=== PATIENT | female | born 1995 | race Hispanic/Latino ===

== ENCOUNTER 2018-01-24 12:35 | Inpatient (IN) | payer OTHER ==
[~2018-01-24] VITALS: Ht 154.9 cm; Wt 82.8 kg
[2018-01-24 15:03] LABS: BASOPHILS # (AUTO) 0.1 (0.0-0.1); BASOPHILS % 0.5 % (0.0-1.0); EOSINOPHILS # (AUTO) 0.2 (0.0-0.4); EOSINOPHILS % 1.3 % (0.0-6.0); LYMPHOCYTES # (AUTO) 4.1 (1.0-3.2); LYMPHOCYTES % 23.4 % (18.0-39.1); MEAN CORPUSCULAR HGB CONC 36.1 g/dL (31-35); MEAN CORPUSCULAR VOLUME 91.4 fL (81-99); MONOCYTES # (AUTO) 0.9 (0.2-0.8); MONOCYTES % 4.9 % (4.4-11.3); NEUTROPHILS # (AUTO) 10.9 (2.1-6.9); NEUTROPHILS % 61.9 % (38.7-80.0); PLATELET COUNT 357 x10e3/uL (140-360); RED BLOOD COUNT 2.09 x10e6/uL (3.6-5.1); RED CELL DISTRIBUTION WIDTH 21.4 % (11.7-14.4)
[2018-01-24 15:09] LABS: HEMATOCRIT 19.1 % (34.2-44.1); HEMOGLOBIN 6.9 g/dL (12.0-16.0)
[2018-01-24 15:10] LABS: ALANINE AMINOTRANSFERASE 21 IU/L (0-55); ALBUMIN 4.6 g/dL (3.5-5.0); ALBUMIN/GLOBULIN RATIO 1.5 (0.8-2.0); ALKALINE PHOSPHATASE 82 IU/L (40-150); ANION GAP 12.6 mmol/L (8-16); BLOOD UREA NITROGEN 12 mg/dL (7-26); BUN/CREATININE RATIO 16 (6-25); CALCIUM 9.9 mg/dL (8.4-10.2); CARBON DIOXIDE 22 mmol/L (22-29); CHLORIDE 105 mmol/L (98-107); CREATININE, SERUM 0.74 mg/dL (0.57-1.11); EST GLOMERULAR FILTRATION RATE > 60 ML/MIN (60-); GLUCOSE 109 mg/dL (74-118); POTASSIUM 3.6 mmol/L (3.5-5.1); SODIUM 136 mmol/L (136-145)
[2018-01-24 15:21] LABS: PREGNANCY TEST, URINE NEGATIVE (NEGATIVE)
[2018-01-24 15:28] LABS: CLARITY,URINE SL CLOUDY (CLEAR); COLOR,URINE YELLOW (YELLOW)
[2018-01-24 15:29] LABS: BILIRUBIN,URINE 1+ (NEGATIVE); KETONES,URINE TRACE (NEGATIVE); LEUKOCYTE ESTERASE ,URINE TRACE (NEGATIVE); NITRITE,URINE NEGATIVE (NEGATIVE); PROTEIN,URINE DIPSTICK TRACE (NEGATIVE); URINE UROBILINOGEN 0.2 mg/dL (0.2 - 1)
[2018-01-24 15:32] LABS: AMORPHOUS SEDIMENT,URINE FEW (FEW); BACTERIA,URINE FEW /HPF; EPITHELIAL CELLS,URINE MANY /LPF
[2018-01-24] MEDS ORDERED: SODIUM CHLORIDE 0.9% 1000ML 1,000 ML IV SCH (15:47)
[2018-01-24] MEDS ORDERED: ONDANSETRON HCL INJ 2 MG/ML VIAL IV PRN (16:00)
[2018-01-24] MEDS ORDERED: SODIUM CHLORIDE 0.9% 250ML 250 ML IV ONE (16:00)
[2018-01-24] MEDS ORDERED: DICLOFENAC SODI50 MG PO (16:59)
[2018-01-24] MEDS ORDERED: AUGMENTIN 875-1 EACH PO (16:59)
[2018-01-24] MEDS ORDERED: FERROUS SULFAT325 MG PO (16:59)
[2018-01-24 18:50] VITALS: BP 127/79
[2018-01-24 19:00] VITALS: BP 129/83
[2018-01-24 19:12] LABS: FERRITIN 167.07 ng/mL (4.63-204.00)
[2018-01-24 20:05] VITALS: BP 129/83
[2018-01-24 20:26] LABS: LYMPHOCYTES % (MANUAL) 25 % (19-48)
[2018-01-24 20:27] LABS: BAND NEUTROPHILS % (MANUAL) 4 %; EOSINOPHILS % (MANUAL) 3 % (0-7); MONOCYTES % (MANUAL) 6 % (3.4-9.0); NEUTROPHILS % (MANUAL) 62 % (40-74); NUCLEATED RED BLOOD CELLS 17
[2018-01-24 20:28] LABS: PLATELET ESTIMATE SLIGHTLY INCREASED; PLATELET MORPHOLOGY COMMENT NORMAL; POLYCHROMASIA MODERATE
[2018-01-24 20:29] LABS: RBC MORPHOLOGY COMMENT ABNORMAL
[2018-01-24 23:50] VITALS: BP 118/65
[2018-01-24] MEDS ORDERED: SODIUM CHLORIDE 0.9% 250ML 250 ML ONE (23:50)
[2018-01-25] MEDS ORDERED: SODIUM CHLORIDE 0.9% 250ML 250 ML ONE (03:05)
[2018-01-25 04:30] VITALS: BP 108/51
[2018-01-25 08:04] VITALS: BP 123/60
[2018-01-25 08:35] VITALS: BP 123/60
[2018-01-25 09:38] LABS: BASOPHILS # (AUTO) 0.1 (0.0-0.1); BASOPHILS % 0.6 % (0.0-1.0); EOSINOPHILS # (AUTO) 0.2 (0.0-0.4); EOSINOPHILS % 1.1 % (0.0-6.0); HEMATOCRIT 23.9 % (34.2-44.1); HEMOGLOBIN 8.5 g/dL (12.0-16.0); LYMPHOCYTES # (AUTO) 3.8 (1.0-3.2); LYMPHOCYTES % 24.3 % (18.0-39.1); MEAN CORPUSCULAR HEMOGLOBIN 31.7 pg (28-32); MEAN CORPUSCULAR HGB CONC 35.6 g/dL (31-35); MEAN CORPUSCULAR VOLUME 89.2 fL (81-99); MONOCYTES # (AUTO) 0.9 (0.2-0.8); MONOCYTES % 5.8 % (4.4-11.3); NEUTROPHILS # (AUTO) 9.4 (2.1-6.9); NEUTROPHILS % 60.4 % (38.7-80.0); PLATELET COUNT 266 x10e3/uL (140-360); RED BLOOD COUNT 2.68 x10e6/uL (3.6-5.1); RED CELL DISTRIBUTION WIDTH 19.7 % (11.7-14.4)
[2018-01-25 09:54] LABS: ANION GAP 11.7 mmol/L (8-16); BLOOD UREA NITROGEN 11 mg/dL (7-26); BUN/CREATININE RATIO 17 (6-25); CALCIUM 9.1 mg/dL (8.4-10.2); CARBON DIOXIDE 24 mmol/L (22-29); CHLORIDE 108 mmol/L (98-107); CREATININE, SERUM 0.65 mg/dL (0.57-1.11); EST GLOMERULAR FILTRATION RATE > 60 ML/MIN (60-); GLUCOSE 102 mg/dL (74-118); POTASSIUM 3.7 mmol/L (3.5-5.1); SODIUM 140 mmol/L (136-145)
[2018-01-25 10:11] LABS: BAND NEUTROPHILS % (MANUAL) 2 %; EOSINOPHILS % (MANUAL) 2 % (0-7); LYMPHOCYTES % (MANUAL) 26 % (19-48); METAMYELOCYTES % (MANUAL) 2 % (0-0); MONOCYTES % (MANUAL) 9 % (3.4-9.0); NEUTROPHILS % (MANUAL) 59 % (40-74); NUCLEATED RED BLOOD CELLS 16
[2018-01-25 10:12] LABS: ANISOCYTOSIS MODERATE; POLYCHROMASIA MANY; RBC MORPHOLOGY COMMENT ABNORMAL
[2018-01-25 10:13] LABS: MICROCYTOSIS MODE; PLATELET ESTIMATE ADEQUATE; PLATELET MORPHOLOGY COMMENT NORMAL
[2018-01-25 11:45] VITALS: BP 112/59
--- NOTE | 2018-01-25 13:38 | History and Physical ---
CHIEF COMPLAINT: Severe symptomatic anemia with tachycardia, lightheadedness, and palpitation with shortness of breath. HISTORY OF PRESENT ILLNESS: This is a 22-year-old female with a longed and unusual monthly menstruation. 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 Patient came in with tachycardia, heart rate in the 115 associated with increasing shortness of breath and she had dizziness and lightheadedness. Her hemoglobin was 6.9, hematocrit was 19.1, and WBC was 17.5. Recently approximately one week ago, the patient was seen in the [facility] and was found to have elevated white cell count at that time. Thought it was infection, but she was also anemic at that time as well. The patient is otherwise stable at this time. PAST MEDICAL HISTORY: Noncontributory except for a long menstruation cycle. PAST SURGICAL HISTORY: Noncontributory. SOCIAL HISTORY: The patient does not smoke or use alcohol and not sexually active. ALLERGIES: NO KNOWN ALLERGIES. HOME MEDICATIONS: None. REVIEW OF SYSTEMS: As above. PHYSICAL EXAMINATION VITAL SIGNS: Temperature is 99.4, blood pressure 142/81, pulse rate is 114, and respiration 20. GENERAL: The patient is not in acute distress. She is awake. She is comfortable. HEENT: Normocephalic, atraumatic. Conjunctiva is pale. NECK: Supple. PULMONARY: Diminished breath sounds. CARDIOVASCULAR: Tachycardia. ABDOMEN: Soft and non-distention. Slight tenderness in the suprapubic area. EXTREMITIES: No cyanosis or edema. NEUROLOGIC: There is no gross focal deficit. LABORATORY DATA: WBC 17.5, hemoglobin 6.9, hematocrit 19.1, and platelets 357. Sodium 136, potassium 3.6, chloride 105, bicarb 22, BUN 12, creatinine 0.7. Glucose is 109. Total bilirubin is 4.5, AST is 42, and ALT 21. IMPRESSION 1. Acute blood loss anemia with symptoms of shortness of breath, tachycardia, and palpitations along with dizziness and lightheadedness. 2. Leukocytosis, most likely reactive. 3. Worsening menorrhagia with a prolonged cycle. 4. Slight low-grade fever. PLAN: Consultation with Dr. Clifton. The patient did receive 2 units of packed red blood cells. She is slowly feeling better. She remains with shortness of breath with ambulation to the bathroom. We will consult Dr. Gavin Blake for most importantly outpatient followup for management of the patient's heavy cycle. We will repeat the patient's blood work in the morning and if appropriate, the patient may have further workup with Dr. Clifton. The patient may need more blood transfusion pending on her blood count due to acute blood loss. The patient may even need a hemoglobin of greater than 9 prior to discharge, but that will be up to the organizational effectiveness consultant to recommend further tests. Job#: [id number] BETTINA
[2018-01-25 16:00] VITALS: BP 117/70
[2018-01-25 20:00] VITALS: BP 122/80
--- NOTE | 2018-01-25 21:29 | Diagnostic Imaging Report ---
CHEST 2 VIEWS, Technique: CHEST 2 VIEWS Comparison: None Clinical history: Leukocytosis DISCUSSION: Frontal view is degraded by motion artifact. Bilateral peribronchial cuffing/opacity. Otherwise unremarkable appearance of the heart, mediastinum, and pleural spaces. IMPRESSION: Findings which can be seen with small airways disease/atypical/viral infection. Signed by: Dr Vidhya Chavez MD on 01/25/2018 9:25 PM
[2018-01-26] VITALS (7 sets, daily range): BP systolic 108–137; BP diastolic 58–78
--- NOTE | 2018-01-26 00:57 | Consultation ---
DATE OF CONSULTATION: January 25, 2018 REASON FOR CONSULTATION: The patient is a 22-year-old 0, virginal patient with last menstrual period on December 31, 2017, not sexually active, on no contraception, who presents with a history of menorrhagia and severe anemia with symptoms of dizziness and weakness. She gives a history that her menses have been heavy since age 17. Her menses started at age 14. Her first 3 days are heavy and she has been passing clots the last 3 months. She has never been on contraception before and her periods are regular, coming approximately every 30 days and lasting to 7 days. Because of her severe anemia, she was admitted for anemia workup and transfusion and she has received 2 units of packed red cells with her hemoglobin going up from 6.9 and hematocrit 19.1 to 8.5 and 23.9 after the transfusion. PAST MEDICAL HISTORY: None except for the recently diagnosed anemia. PAST SURGICAL HISTORY: None. CURRENT MEDICATIONS: None. 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 Menarche age 14, 30-day cycles lasting 7 days, the first 3 days are heavy since age 17 and she has been passing clots the last 3 months. Patient is virginal and she is 0. REVIEW OF SYSTEMS: Remarkable for fatigue, worse than before, and for shortness of breath, heavy periods, and headache with dizziness. 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 She is a nonsmoker. Denies alcohol or IV drug abuse. PHYSICAL EXAMINATION VITAL SIGNS: Patient's height is 60 inches, her weight is 173 pounds, temperature 97.5, pulse 99, respirations 18, and blood pressure 122/80. LUNGS: Clear. CARDIOVASCULAR: There is regular rate and rhythm with rate around 100. ABDOMEN: Benign, nontender. No palpable masses. No hepatosplenomegaly. Normal bowel sounds. Again, no tenderness. PELVIC: Deferred because the patient is virginal. LABORATORY VALUES: Her sodium was 136, potassium 3.6, chloride 105, bicarb 22, glucose 109, creatinine 0.7, and BUN 12. Her total bilirubin was 4.5, AST 42, ALT 21. UCG was negative. Blood type O positive. Her post transfusion H and H 8.5, 23.9, white count 15.6. Remainder of differential showed 59 segs, 2 bands, 26 lymphs, 2 metamyelocytes, 16 nuclear red blood cells and reticulocyte count of 9.9%. MCV was 91, MCH 33. Lactic acid was 5.1. Vitamin B12 of 393. Folate 14.5. TSH 1.489 and free T4 of 1.14. Chest x-ray suggests possible atypical infection. IMPRESSION: Menorrhagia and anemia. PLAN: From a gynecologic point of view, she can get an ultrasound here or in our office after she is discharged. Since she is virginal, we will probably have to do an office ultrasound in any event. I discussed with the patient taking oral contraceptives which she is amenable to and also using NSAIDs immediately prior to and during the first few days of her cycle to reduce her flow. A combination of oral contraceptives plus nonsteroidal anti-inflammatories has been shown to greatly reduce menses in general and this is the course of action I would suggest for her. In view of the borderline low vitamin B12, I would also suggest giving a 1-time B12 shot so that a borderline vitamin B12 will not limit her hematopoiesis. Thank you very much for this interesting consult. Job#: [id number] DEX TREJO
[2018-01-26 06:17] LABS: BASOPHILS # (AUTO) 0.1 (0.0-0.1); BASOPHILS % 0.6 % (0.0-1.0); EOSINOPHILS # (AUTO) 0.2 (0.0-0.4); EOSINOPHILS % 1.4 % (0.0-6.0); HEMOGLOBIN 8.1 g/dL (12.0-16.0); LYMPHOCYTES # (AUTO) 4.1 (1.0-3.2); MEAN CORPUSCULAR HEMOGLOBIN 32.5 pg (28-32); MEAN CORPUSCULAR HGB CONC 36.3 g/dL (31-35); MEAN CORPUSCULAR VOLUME 89.6 fL (81-99); MONOCYTES # (AUTO) 1.2 (0.2-0.8); MONOCYTES % 7.3 % (4.4-11.3); NEUTROPHILS # (AUTO) 9.7 (2.1-6.9); NEUTROPHILS % 59.5 % (38.7-80.0); PLATELET COUNT 274 x10e3/uL (140-360); RED BLOOD COUNT 2.49 x10e6/uL (3.6-5.1); RED CELL DISTRIBUTION WIDTH 19.2 % (11.7-14.4)
[2018-01-26 06:31] LABS: ANION GAP 11.6 mmol/L (8-16); BLOOD UREA NITROGEN 13 mg/dL (7-26); BUN/CREATININE RATIO 19 (6-25); CALCIUM 9.2 mg/dL (8.4-10.2); CARBON DIOXIDE 23 mmol/L (22-29); CHLORIDE 107 mmol/L (98-107); CREATININE, SERUM 0.67 mg/dL (0.57-1.11); EST GLOMERULAR FILTRATION RATE > 60 ML/MIN (60-); GLUCOSE 87 mg/dL (74-118); POTASSIUM 3.6 mmol/L (3.5-5.1); SODIUM 138 mmol/L (136-145)
[2018-01-26 07:28] LABS: HEMATOCRIT 22.3 % (34.2-44.1)
[2018-01-26 07:37] LABS: ALBUMIN 4.1 g/dL (3.5-5.0); BILIRUBIN,DIRECT 0.5 mg/dL (0.0-0.5)
[2018-01-26] MEDS: AZITHROMYCIN 250MG/NS 100 ML 100 ML IV SCH (10:40)
[2018-01-26 14:01] LABS: FERRITIN 191.29 ng/mL (4.63-204.00)
[2018-01-26] MEDS ORDERED: IOPAMIDOL 370 MG/ML 200 ML INFUS..BTL INJ ONE (14:23)
[2018-01-26] MEDS ORDERED: SODIUM CHLORIDE 0.9% 50ML 50 ML ONE (14:23)
--- NOTE | 2018-01-26 15:45 | Diagnostic Imaging Report ---
EXAMINATION: CT of the chest with contrast, PE protocol. TECHNIQUE: Spiral CT images of the chest were performed from the lung apices through the level of the adrenal glands after the IV administration of 100 cc of Isovue 370. Thin section reconstructions were obtained with special concentration on the pulmonary arteries. Coronal and sagittal images were performed COMPARISON: <none> CLINICAL HISTORY:Anemia, palpitations, hemolysis, shortness of breath DISCUSSION: Lungs: No filling defects are identified in the main, right or left pulmonary arteries to their segmental levels, to suggest pulmonary embolism. Lungs are grossly clear. No consolidation, nodules or masses. Airways are clear, without endobronchial lesions. Pleura: <There is no evidence of pleural effusion or pneumothorax.> Heart and mediastinum: Thyroid is unremarkable. Borderline enlarged heart size. The aorta is not aneurysmal. Main pulmonary artery is mildly enlarged, measuring 3.2 cm Lymph nodes: No mediastinal hilar or axillary adenopathy. Nonspecific subcentimeter right hilar node (series 2, image 41). Abdomen: Please see CT chest abdomen and pelvis performed same date for further detail. Bones and soft tissues: No aggressive lytic lesion. Soft tissues are grossly unremarkable. IMPRESSION: 1. No CT evidence of pulmonary embolism to the segmental level. 2. Essentially clear lungs. Consolidation, masses or nodules. 3. Mild enlargement of the main pulmonary artery. Signed by: Dr. Jona Perez M.D. on 01/26/2018 3:41 PM
--- NOTE | 2018-01-26 15:55 | Diagnostic Imaging Report ---
EXAMINATION: CT of the abdomen and pelvis with contrast. TECHNIQUE: Spiral CT images of the abdomen and pelvis were performed from the lung bases to the lesser trochanters after the intravenous administration of 100 cc of Isovue 370 and the oral administration of water. Coronal and sagittal reformatted images were obtained. COMPARISON: None. CLINICAL HISTORY:Hemolysis, anemia, palpitations DISCUSSION: ABDOMEN/PELVIS: LOWER THORAX:Please see CT chest performed same date for further details. HEPATOBILIARY: No focal hepatic lesions. No intra or extrahepatic biliary ductal dilation. GALLBLADDER: No radio-opaque stones or sludge. No wall thickening. SPLEEN: Mild splenomegaly, measuring 14.0 cm in AP diameter. PANCREAS: No focal masses or ductal dilatation. ADRENALS: No adrenal nodules. KIDNEYS/URETERS: No hydronephrosis, stones, or solid mass lesions. PELVIC ORGANS/BLADDER: Bladder and uterus are unremarkable. No focal lesions or wall thickening. Left corpus luteum cyst. No adnexal masses. PERITONEUM/RETROPERITONEUM: Trace free fluid in the pelvic cul-de-sac, likely physiological. LYMPH NODES: No intra-abdominal, retroperitoneal, pelvic or inguinal lymphadenopathy. VESSELS: The celiac trunk,superior and inferior mesenteric and bilateral renal arteries are patent The portal, superior mesenteric and splenic veins are patent. GI TRACT: Bowel dilation or evidence of obstruction. No pericolonic inflammatory changes. Appendix is identified and normal in caliber. The stomach is unremarkable. BONES AND SOFT TISSUE: No aggressive lytic lesions. Soft tissues are unremarkable. IMPRESSION: 1. No acute abdominal or pelvic abnormalities. 2. Mild splenomegaly. Signed by: Dr. Jona Perez M.D. on 01/26/2018 3:52 PM
[2018-01-27] VITALS (7 sets, daily range): BP systolic 105–124; BP diastolic 53–78
[2018-01-27 05:58] LABS: BASOPHILS # (AUTO) 0.1 (0.0-0.1); BASOPHILS % 0.4 % (0.0-1.0); EOSINOPHILS # (AUTO) 0.2 (0.0-0.4); EOSINOPHILS % 1.3 % (0.0-6.0); HEMATOCRIT 21.8 % (34.2-44.1); HEMOGLOBIN 7.7 g/dL (12.0-16.0); LYMPHOCYTES # (AUTO) 3.8 (1.0-3.2); LYMPHOCYTES % 26.5 % (18.0-39.1); MEAN CORPUSCULAR HEMOGLOBIN 31.4 pg (28-32); MEAN CORPUSCULAR HGB CONC 35.3 g/dL (31-35); MONOCYTES # (AUTO) 0.9 (0.2-0.8); MONOCYTES % 6.4 % (4.4-11.3); NEUTROPHILS # (AUTO) 8.5 (2.1-6.9); NEUTROPHILS % 59.5 % (38.7-80.0); PLATELET COUNT 256 x10e3/uL (140-360); RED BLOOD COUNT 2.45 x10e6/uL (3.6-5.1); RED CELL DISTRIBUTION WIDTH 19.4 % (11.7-14.4)
[2018-01-27] MEDS ORDERED: SODIUM CHLORIDE 0.9% 250ML 250 ML ONE (09:51)
[2018-01-27] MEDS: AZITHROMYCIN 250MG/NS 100 ML 100 ML IV SCH (09:59)
[2018-01-27 13:59] LABS: BAND NEUTROPHILS % (MANUAL) 1 %; EOSINOPHILS % (MANUAL) 1 % (0-7); LYMPHOCYTES % (MANUAL) 24 % (19-48); METAMYELOCYTES % (MANUAL) 3 % (0-0); MONOCYTES % (MANUAL) 7 % (3.4-9.0); MYELOCYTES % (MANUAL) 2 % (0-0); NEUTROPHILS % (MANUAL) 62 % (40-74); NUCLEATED RED BLOOD CELLS 12; PLATELET ESTIMATE ADEQUATE
[2018-01-27 14:00] LABS: ANISOCYTOSIS MODERATE; HYPOCHROMASIA MODERATE; PLATELET MORPHOLOGY COMMENT FEW GIANT; RBC MORPHOLOGY COMMENT ABNORMAL
[2018-01-28] VITALS (7 sets, daily range): BP systolic 108–136; BP diastolic 54–81
[2018-01-28 05:39] LABS: BASOPHILS % 0.3 % (0.0-1.0); EOSINOPHILS # (AUTO) 0.2 (0.0-0.4); EOSINOPHILS % 1.6 % (0.0-6.0); HEMOGLOBIN 7.3 g/dL (12.0-16.0); LYMPHOCYTES # (AUTO) 3.8 (1.0-3.2); LYMPHOCYTES % 28.1 % (18.0-39.1); MEAN CORPUSCULAR HEMOGLOBIN 31.1 pg (28-32); MEAN CORPUSCULAR HGB CONC 34.4 g/dL (31-35); MEAN CORPUSCULAR VOLUME 90.2 fL (81-99); MONOCYTES # (AUTO) 0.8 (0.2-0.8); MONOCYTES % 6.1 % (4.4-11.3); NEUTROPHILS # (AUTO) 7.8 (2.1-6.9); NEUTROPHILS % 58.7 % (38.7-80.0); PLATELET COUNT 260 x10e3/uL (140-360); RED BLOOD COUNT 2.35 x10e6/uL (3.6-5.1); RED CELL DISTRIBUTION WIDTH 19.9 % (11.7-14.4)
[2018-01-28 06:46] LABS: HEMATOCRIT 21.2 % (34.2-44.1)
[2018-01-28] MEDS ORDERED: LIDOCAINE HCL 2% LOCAL 20 ML VIAL INJ NR (08:00)
[2018-01-28] MEDS ORDERED: LORAZEPAM 1 MG TAB PO STA (08:34)
[2018-01-28] MEDS ORDERED: MORPHINE SULFATE INJ 4 MG/ML INJ IV STA (08:59)
[2018-01-28] MEDS: AZITHROMYCIN 250MG/NS 100 ML 100 ML IV SCH (09:51)
[2018-01-28] MEDS: PREDNISONE 20 MG TAB PO SCH (09:51)
[2018-01-28] MEDS ORDERED: SODIUM CHLORIDE 0.9% 50ML 50 ML ONE (12:29)
[2018-01-28] MEDS: IMMUNE GLOBULIN 10%,10GM/100ML 300 ML IV SCH (12:37)
[2018-01-28] MEDS: DANAZOL 100 MG CAP PO SCH ×3 (12:38→20:48)
[2018-01-29] VITALS (7 sets, daily range): BP systolic 106–124; BP diastolic 54–80
[2018-01-29] MEDS: IMMUNE GLOBULIN 10%,10GM/100ML 300 ML IV SCH ×2 (05:06→13:46)
[2018-01-29 05:52] LABS: BASOPHILS # (AUTO) 0.1 (0.0-0.1); BASOPHILS % 0.4 % (0.0-1.0); EOSINOPHILS % 0.2 % (0.0-6.0); HEMOGLOBIN 7.1 g/dL (12.0-16.0); LYMPHOCYTES # (AUTO) 3.1 (1.0-3.2); LYMPHOCYTES % 17.1 % (18.0-39.1); MEAN CORPUSCULAR HEMOGLOBIN 31.4 pg (28-32); MEAN CORPUSCULAR VOLUME 89.8 fL (81-99); MONOCYTES # (AUTO) 1.2 (0.2-0.8); MONOCYTES % 6.4 % (4.4-11.3); NEUTROPHILS # (AUTO) 12.7 (2.1-6.9); NEUTROPHILS % 70.5 % (38.7-80.0); PLATELET COUNT 280 x10e3/uL (140-360); RED BLOOD COUNT 2.26 x10e6/uL (3.6-5.1); RED CELL DISTRIBUTION WIDTH 20.6 % (11.7-14.4); RETICULOCYTE % 10.2 % (0.8-2.2)
[2018-01-29 05:55] LABS: HEMATOCRIT 20.3 % (34.2-44.1)
[2018-01-29 06:03] LABS: ANION GAP 12.5 mmol/L (8-16); BLOOD UREA NITROGEN 9 mg/dL (7-26); BUN/CREATININE RATIO 14 (6-25); CALCIUM 9.4 mg/dL (8.4-10.2); CARBON DIOXIDE 23 mmol/L (22-29); CHLORIDE 106 mmol/L (98-107); CREATININE, SERUM 0.65 mg/dL (0.57-1.11); EST GLOMERULAR FILTRATION RATE > 60 ML/MIN (60-); GLUCOSE 94 mg/dL (74-118); POTASSIUM 3.5 mmol/L (3.5-5.1); SODIUM 138 mmol/L (136-145)
[2018-01-29] MEDS: PREDNISONE 20 MG TAB PO SCH (08:12)
[2018-01-29] MEDS: DANAZOL 100 MG CAP PO SCH ×4 (08:12→21:00)
[2018-01-29 08:32] LABS: BAND NEUTROPHILS % (MANUAL) 1 %; LYMPHOCYTES % (MANUAL) 17 % (19-48); METAMYELOCYTES % (MANUAL) 1 % (0-0); MONOCYTES % (MANUAL) 3 % (3.4-9.0); NEUTROPHILS % (MANUAL) 78 % (40-74); POLYCHROMASIA FEW
[2018-01-29 08:33] LABS: ANISOCYTOSIS SLIGHT; MICROCYTOSIS SLIG; PLATELET ESTIMATE ADEQUATE; PLATELET MORPHOLOGY COMMENT NORMAL
[2018-01-29 08:34] LABS: NUCLEATED RED BLOOD CELLS 13
[2018-01-29] MEDS: AZITHROMYCIN 250 MG TAB PO SCH (10:51)
[2018-01-29] MEDS ORDERED: IBUPROFEN 600 MG TAB PO PRN (20:30)
[2018-01-30] VITALS (7 sets, daily range): BP systolic 93–139; BP diastolic 53–68
[2018-01-30 05:34] LABS: BASOPHILS # (AUTO) 0.1 (0.0-0.1); BASOPHILS % 0.5 % (0.0-1.0); EOSINOPHILS % 0.1 % (0.0-6.0); LYMPHOCYTES % 17.1 % (18.0-39.1); MEAN CORPUSCULAR HEMOGLOBIN 31.6 pg (28-32); MEAN CORPUSCULAR HGB CONC 34.7 g/dL (31-35); MEAN CORPUSCULAR VOLUME 91.2 fL (81-99); MONOCYTES # (AUTO) 1.3 (0.2-0.8); MONOCYTES % 7.4 % (4.4-11.3); NEUTROPHILS # (AUTO) 11.7 (2.1-6.9); NEUTROPHILS % 67.7 % (38.7-80.0); PLATELET COUNT 274 x10e3/uL (140-360); RED BLOOD COUNT 2.15 x10e6/uL (3.6-5.1); RED CELL DISTRIBUTION WIDTH 20.8 % (11.7-14.4); RETICULOCYTE % 11.5 % (0.8-2.2)
[2018-01-30 05:45] LABS: HEMATOCRIT 19.6 % (34.2-44.1); HEMOGLOBIN 6.8 g/dL (12.0-16.0)
[2018-01-30 05:48] LABS: ANION GAP 10.7 mmol/L (8-16); BLOOD UREA NITROGEN 13 mg/dL (7-26); BUN/CREATININE RATIO 19 (6-25); CARBON DIOXIDE 24 mmol/L (22-29); CHLORIDE 108 mmol/L (98-107); CREATININE, SERUM 0.67 mg/dL (0.57-1.11); EST GLOMERULAR FILTRATION RATE > 60 ML/MIN (60-); GLUCOSE 104 mg/dL (74-118); POTASSIUM 3.7 mmol/L (3.5-5.1); SODIUM 139 mmol/L (136-145)
[2018-01-30] MEDS: AZITHROMYCIN 250 MG TAB PO SCH (08:40)
[2018-01-30] MEDS: PREDNISONE 20 MG TAB PO SCH (08:40)
[2018-01-30] MEDS: DANAZOL 100 MG CAP PO SCH ×4 (08:40→21:00)
[2018-01-30] MEDS: METHYLPREDNISOLONE SOD SUCC 40 MG/ML VIAL IV SCH ×2 (11:22→18:05)
[2018-01-30] MEDS: IMMUNE GLOBULIN 10%,10GM/100ML 300 ML IV SCH (14:18)
[2018-01-31] VITALS (7 sets, daily range): BP systolic 97–111; BP diastolic 54–63
[2018-01-31 05:36] LABS: BASOPHILS # (AUTO) 0.1 (0.0-0.1); BASOPHILS % 0.3 % (0.0-1.0); HEMOGLOBIN 7.2 g/dL (12.0-16.0); LYMPHOCYTES # (AUTO) 1.6 (1.0-3.2); LYMPHOCYTES % 7.9 % (18.0-39.1); MEAN CORPUSCULAR HEMOGLOBIN 32.1 pg (28-32); MEAN CORPUSCULAR HGB CONC 35.3 g/dL (31-35); MEAN CORPUSCULAR VOLUME 91.1 fL (81-99); MONOCYTES # (AUTO) 0.8 (0.2-0.8); MONOCYTES % 3.7 % (4.4-11.3); NEUTROPHILS # (AUTO) 16.6 (2.1-6.9); PLATELET COUNT 306 x10e3/uL (140-360); RED BLOOD COUNT 2.24 x10e6/uL (3.6-5.1); RED CELL DISTRIBUTION WIDTH 20.6 % (11.7-14.4); RETICULOCYTE % 11.9 % (0.8-2.2)
[2018-01-31 05:39] LABS: HEMATOCRIT 20.4 % (34.2-44.1)
[2018-01-31 05:52] LABS: BLOOD UREA NITROGEN 10 mg/dL (7-26); BUN/CREATININE RATIO 14 (6-25); CALCIUM 9.3 mg/dL (8.4-10.2); CARBON DIOXIDE 23 mmol/L (22-29); CHLORIDE 107 mmol/L (98-107); CREATININE, SERUM 0.72 mg/dL (0.57-1.11); EST GLOMERULAR FILTRATION RATE > 60 ML/MIN (60-); GLUCOSE 125 mg/dL (74-118); SODIUM 139 mmol/L (136-145)
[2018-01-31] MEDS: METHYLPREDNISOLONE SOD SUCC 40 MG/ML VIAL IV SCH ×4 (05:53→18:22)
[2018-01-31 06:25] LABS: LYMPHOCYTES % (MANUAL) 5 % (19-48); MONOCYTES % (MANUAL) 9 % (3.4-9.0); NEUTROPHILS % (MANUAL) 85 % (40-74); NUCLEATED RED BLOOD CELLS 17
[2018-01-31 06:26] LABS: ANISOCYTOSIS SLIGHT; PLATELET ESTIMATE SLIGHTLY DECREASED; PLATELET MORPHOLOGY COMMENT NORMAL; RBC MORPHOLOGY COMMENT ABNORMAL
[2018-01-31] MEDS: DANAZOL 100 MG CAP PO SCH ×4 (09:38→21:47)
[2018-01-31] MEDS ORDERED: IMMUNE GLOBULIN 10%,10GM/100ML 300 ML IV SCH (11:00)
[2018-01-31] MEDS: IMMUNE GLOBULIN 10%,10GM/100ML 300 ML IV SCH (14:11)
[2018-01-31] MEDS: PANTOPRAZOLE SOD 40 MG TABEC PO SCH (17:27)
[2018-02-01] VITALS (8 sets, daily range): BP systolic 105–122; BP diastolic 53–69
[2018-02-01] MEDS: METHYLPREDNISOLONE SOD SUCC 40 MG/ML VIAL IV SCH ×4 (00:27→18:00)
[2018-02-01 06:07] LABS: BASOPHILS # (AUTO) 0.1 (0.0-0.1); BASOPHILS % 0.4 % (0.0-1.0); HEMOGLOBIN 7.3 g/dL (12.0-16.0); LYMPHOCYTES # (AUTO) 1.9 (1.0-3.2); LYMPHOCYTES % 8.9 % (18.0-39.1); MEAN CORPUSCULAR HEMOGLOBIN 32.2 pg (28-32); MEAN CORPUSCULAR HGB CONC 34.6 g/dL (31-35); MONOCYTES # (AUTO) 0.9 (0.2-0.8); MONOCYTES % 4.4 % (4.4-11.3); NEUTROPHILS # (AUTO) 16.8 (2.1-6.9); NEUTROPHILS % 78.5 % (38.7-80.0); PLATELET COUNT 312 x10e3/uL (140-360); RED BLOOD COUNT 2.27 x10e6/uL (3.6-5.1); RED CELL DISTRIBUTION WIDTH 21.8 % (11.7-14.4); RETICULOCYTE % 13.4 % (0.8-2.2)
[2018-02-01 06:11] LABS: HEMATOCRIT 21.1 % (34.2-44.1)
[2018-02-01 06:25] LABS: ANION GAP 12.1 mmol/L (8-16); BLOOD UREA NITROGEN 9 mg/dL (7-26); BUN/CREATININE RATIO 13 (6-25); CALCIUM 9.1 mg/dL (8.4-10.2); CARBON DIOXIDE 24 mmol/L (22-29); CHLORIDE 105 mmol/L (98-107); CREATININE, SERUM 0.71 mg/dL (0.57-1.11); EST GLOMERULAR FILTRATION RATE > 60 ML/MIN (60-); GLUCOSE 127 mg/dL (74-118); POTASSIUM 4.1 mmol/L (3.5-5.1); SODIUM 137 mmol/L (136-145)
[2018-02-01 08:27] LABS: LYMPHOCYTES % (MANUAL) 7 % (19-48); MONOCYTES % (MANUAL) 8 % (3.4-9.0); NEUTROPHILS % (MANUAL) 85 % (40-74); NUCLEATED RED BLOOD CELLS 8
[2018-02-01 08:28] LABS: PLATELET ESTIMATE ADEQUATE; PLATELET MORPHOLOGY COMMENT NORMAL; POLYCHROMASIA MANY; RBC MORPHOLOGY COMMENT ABNORMAL
[2018-02-01] MEDS: DANAZOL 100 MG CAP PO SCH ×4 (09:35→20:37)
[2018-02-01] MEDS: IMMUNE GLOBULIN 10%,10GM/100ML 300 ML IV SCH (14:37)
[2018-02-01] MEDS: PANTOPRAZOLE SOD 40 MG TABEC PO SCH (18:00)
[2018-02-02] VITALS (7 sets, daily range): BP systolic 106–122; BP diastolic 52–79
[2018-02-02] MEDS: METHYLPREDNISOLONE SOD SUCC 40 MG/ML VIAL IV SCH ×4 (00:33→17:01)
[2018-02-02 05:26] LABS: BASOPHILS # (AUTO) 0.1 (0.0-0.1); BASOPHILS % 0.5 % (0.0-1.0); EOSINOPHILS % 0.1 % (0.0-6.0); HEMATOCRIT 22.3 % (34.2-44.1); HEMOGLOBIN 7.7 g/dL (12.0-16.0); LYMPHOCYTES # (AUTO) 1.5 (1.0-3.2); LYMPHOCYTES % 8.1 % (18.0-39.1); MEAN CORPUSCULAR HEMOGLOBIN 32.4 pg (28-32); MEAN CORPUSCULAR HGB CONC 34.5 g/dL (31-35); MEAN CORPUSCULAR VOLUME 93.7 fL (81-99); MONOCYTES # (AUTO) 1.1 (0.2-0.8); MONOCYTES % 5.6 % (4.4-11.3); NEUTROPHILS # (AUTO) 14.9 (2.1-6.9); PLATELET COUNT 319 x10e3/uL (140-360); RED BLOOD COUNT 2.38 x10e6/uL (3.6-5.1); RED CELL DISTRIBUTION WIDTH 22.3 % (11.7-14.4); RETICULOCYTE % 15.9 % (0.8-2.2)
[2018-02-02 05:42] LABS: ANION GAP 11.3 mmol/L (8-16); BLOOD UREA NITROGEN 10 mg/dL (7-26); BUN/CREATININE RATIO 15 (6-25); CALCIUM 8.7 mg/dL (8.4-10.2); CARBON DIOXIDE 26 mmol/L (22-29); CHLORIDE 103 mmol/L (98-107); CREATININE, SERUM 0.68 mg/dL (0.57-1.11); EST GLOMERULAR FILTRATION RATE > 60 ML/MIN (60-); GLUCOSE 132 mg/dL (74-118); POTASSIUM 4.3 mmol/L (3.5-5.1); SODIUM 136 mmol/L (136-145)
[2018-02-02 07:18] LABS: BAND NEUTROPHILS % (MANUAL) 2 %; LYMPHOCYTES % (MANUAL) 7 % (19-48); METAMYELOCYTES % (MANUAL) 6 % (0-0); MONOCYTES % (MANUAL) 6 % (3.4-9.0); MYELOCYTES % (MANUAL) 2 % (0-0); NEUTROPHILS % (MANUAL) 77 % (40-74); NUCLEATED RED BLOOD CELLS 32
[2018-02-02 07:22] LABS: ANISOCYTOSIS MODERATE; PLATELET ESTIMATE ADEQUATE; PLATELET MORPHOLOGY COMMENT NORMAL; RBC MORPHOLOGY COMMENT ABNORMAL
[2018-02-02 07:23] LABS: HYPOCHROMASIA MODERATE; POIKILOCYTOSIS MODERATE; POLYCHROMASIA FEW
[2018-02-02] MEDS: DANAZOL 100 MG CAP PO SCH ×4 (08:50→20:40)
[2018-02-02] MEDS: IMMUNE GLOBULIN 10%,10GM/100ML 300 ML IV SCH (15:10)
[2018-02-02] MEDS: PANTOPRAZOLE SOD 40 MG TABEC PO SCH (16:59)
[2018-02-03] VITALS: BP 106/67
[2018-02-03] MEDS: METHYLPREDNISOLONE SOD SUCC 40 MG/ML VIAL IV SCH ×4 (00:32→17:02)
[2018-02-03 04:00] VITALS: BP 132/73
[2018-02-03 05:15] LABS: BASOPHILS # (AUTO) 0.1 (0.0-0.1); BASOPHILS % 0.4 % (0.0-1.0); HEMOGLOBIN 7.7 g/dL (12.0-16.0); LYMPHOCYTES # (AUTO) 0.9 (1.0-3.2); LYMPHOCYTES % 6.6 % (18.0-39.1); MEAN CORPUSCULAR HEMOGLOBIN 32.8 pg (28-32); MEAN CORPUSCULAR HGB CONC 34.2 g/dL (31-35); MEAN CORPUSCULAR VOLUME 95.7 fL (81-99); MONOCYTES # (AUTO) 0.9 (0.2-0.8); MONOCYTES % 6.3 % (4.4-11.3); NEUTROPHILS # (AUTO) 10.9 (2.1-6.9); NEUTROPHILS % 79.3 % (38.7-80.0); PLATELET COUNT 298 x10e3/uL (140-360); RED BLOOD COUNT 2.35 x10e6/uL (3.6-5.1); RED CELL DISTRIBUTION WIDTH 22.5 % (11.7-14.4); RETICULOCYTE % 17.1 % (0.8-2.2)
[2018-02-03 05:27] LABS: HEMATOCRIT 22.5 % (34.2-44.1)
[2018-02-03 05:32] LABS: BLOOD UREA NITROGEN 12 mg/dL (7-26); BUN/CREATININE RATIO 18 (6-25); CALCIUM 8.5 mg/dL (8.4-10.2); CARBON DIOXIDE 26 mmol/L (22-29); CHLORIDE 99 mmol/L (98-107); CREATININE, SERUM 0.68 mg/dL (0.57-1.11); EST GLOMERULAR FILTRATION RATE > 60 ML/MIN (60-); GLUCOSE 134 mg/dL (74-118); SODIUM 132 mmol/L (136-145)
[2018-02-03 07:09] LABS: LYMPHOCYTES % (MANUAL) 7 % (19-48); METAMYELOCYTES % (MANUAL) 4 % (0-0); MONOCYTES % (MANUAL) 9 % (3.4-9.0); MYELOCYTES % (MANUAL) 3 % (0-0); NEUTROPHILS % (MANUAL) 77 % (40-74); NUCLEATED RED BLOOD CELLS 52
[2018-02-03 07:16] LABS: ANISOCYTOSIS MODERATE; HYPOCHROMASIA MODERATE; PLATELET ESTIMATE ADEQUATE; PLATELET MORPHOLOGY COMMENT NORMAL; POIKILOCYTOSIS SLIGHT; POLYCHROMASIA FEW; RBC MORPHOLOGY COMMENT ABNORMAL
[2018-02-03 08:00] VITALS: BP 110/57
[2018-02-03] MEDS: DANAZOL 100 MG CAP PO SCH ×4 (09:10→20:56)
[2018-02-03 12:00] VITALS: BP 116/63
[2018-02-03 16:00] VITALS: BP_SYST 115; BP_SYST 135; BP_DIAS 64; BP_DIAS 66
[2018-02-03] MEDS: PANTOPRAZOLE SOD 40 MG TABEC PO SCH (17:02)
[2018-02-03] MEDS: IMMUNE GLOBULIN 10%,10GM/100ML 300 ML IV SCH (18:00)
[2018-02-03 20:00] VITALS: BP 138/65
[2018-02-04] VITALS (9 sets, daily range): BP systolic 113–138; BP diastolic 56–68
[2018-02-04] MEDS: METHYLPREDNISOLONE SOD SUCC 40 MG/ML VIAL IV SCH ×5 (00:59→23:48)
[2018-02-04 05:46] LABS: BASOPHILS % 0.2 % (0.0-1.0); HEMATOCRIT 22.7 % (34.2-44.1); HEMOGLOBIN 7.7 g/dL (12.0-16.0); LYMPHOCYTES # (AUTO) 0.6 (1.0-3.2); LYMPHOCYTES % 5.2 % (18.0-39.1); MEAN CORPUSCULAR HGB CONC 33.9 g/dL (31-35); MEAN CORPUSCULAR VOLUME 97.4 fL (81-99); MONOCYTES # (AUTO) 0.9 (0.2-0.8); MONOCYTES % 7.5 % (4.4-11.3); NEUTROPHILS # (AUTO) 8.9 (2.1-6.9); NEUTROPHILS % 79.2 % (38.7-80.0); PLATELET COUNT 275 x10e3/uL (140-360); RED BLOOD COUNT 2.33 x10e6/uL (3.6-5.1); RED CELL DISTRIBUTION WIDTH 23.3 % (11.7-14.4); RETICULOCYTE % 18.5 % (0.8-2.2)
[2018-02-04 06:24] LABS: ANION GAP 11.1 mmol/L (8-16); BLOOD UREA NITROGEN 13 mg/dL (7-26); BUN/CREATININE RATIO 21 (6-25); CALCIUM 8.3 mg/dL (8.4-10.2); CARBON DIOXIDE 25 mmol/L (22-29); CHLORIDE 98 mmol/L (98-107); CREATININE, SERUM 0.62 mg/dL (0.57-1.11); EST GLOMERULAR FILTRATION RATE > 60 ML/MIN (60-); GLUCOSE 128 mg/dL (74-118); POTASSIUM 4.1 mmol/L (3.5-5.1); SODIUM 130 mmol/L (136-145)
[2018-02-04 08:46] LABS: ANISOCYTOSIS MODERATE; BAND NEUTROPHILS % (MANUAL) 2 %; LYMPHOCYTES % (MANUAL) 5 % (19-48); METAMYELOCYTES % (MANUAL) 3 % (0-0); MONOCYTES % (MANUAL) 13 % (3.4-9.0); MYELOCYTES % (MANUAL) 2 % (0-0); NEUTROPHILS % (MANUAL) 75 % (40-74); NUCLEATED RED BLOOD CELLS 76; PLATELET ESTIMATE ADEQUATE; POLYCHROMASIA FEW; RBC MORPHOLOGY COMMENT ABNORMAL
[2018-02-04 08:47] LABS: HYPOCHROMASIA MODE; PLATELET MORPHOLOGY COMMENT NORMAL
[2018-02-04] MEDS: DANAZOL 100 MG CAP PO SCH ×4 (09:30→20:20)
[2018-02-04] MEDS: PANTOPRAZOLE SOD 40 MG TABEC PO SCH (16:19)
[2018-02-05] VITALS (7 sets, daily range): BP systolic 107–127; BP diastolic 58–63
[2018-02-05] MEDS: METHYLPREDNISOLONE SOD SUCC 40 MG/ML VIAL IV SCH (05:24)
[2018-02-05 05:51] LABS: BASOPHILS % 0.3 % (0.0-1.0); HEMOGLOBIN 7.8 g/dL (12.0-16.0); LYMPHOCYTES # (AUTO) 0.3 (1.0-3.2); LYMPHOCYTES % 3.1 % (18.0-39.1); MEAN CORPUSCULAR HEMOGLOBIN 33.9 pg (28-32); MONOCYTES # (AUTO) 0.7 (0.2-0.8); MONOCYTES % 6.6 % (4.4-11.3); NEUTROPHILS % 81.8 % (38.7-80.0); PLATELET COUNT 259 x10e3/uL (140-360); RED CELL DISTRIBUTION WIDTH 22.5 % (11.7-14.4); RETICULOCYTE % 19.7 % (0.8-2.2)
[2018-02-05 06:14] LABS: HEMATOCRIT 22.3 % (34.2-44.1)
[2018-02-05 06:15] LABS: ANION GAP 9.3 mmol/L (8-16); BLOOD UREA NITROGEN 13 mg/dL (7-26); BUN/CREATININE RATIO 20 (6-25); CALCIUM 8.3 mg/dL (8.4-10.2); CARBON DIOXIDE 27 mmol/L (22-29); CHLORIDE 101 mmol/L (98-107); CREATININE, SERUM 0.64 mg/dL (0.57-1.11); EST GLOMERULAR FILTRATION RATE > 60 ML/MIN (60-); GLUCOSE 133 mg/dL (74-118); POTASSIUM 4.3 mmol/L (3.5-5.1); SODIUM 133 mmol/L (136-145)
[2018-02-05 08:30] LABS: LYMPHOCYTES % (MANUAL) 9 % (19-48); METAMYELOCYTES % (MANUAL) 3 % (0-0); MONOCYTES % (MANUAL) 8 % (3.4-9.0); MYELOCYTES % (MANUAL) 1 % (0-0); NEUTROPHILS % (MANUAL) 77 % (40-74); NUCLEATED RED BLOOD CELLS 51
[2018-02-05 08:31] LABS: HYPOCHROMASIA MODERATE; RBC MORPHOLOGY COMMENT ABNORMAL
[2018-02-05 08:32] LABS: ANISOCYTOSIS MODERATE; PLATELET ESTIMATE ADEQUATE; PLATELET MORPHOLOGY COMMENT NORMAL; POIKILOCYTOSIS SLIGHT; POLYCHROMASIA FEW
[2018-02-05] MEDS: PREDNISONE 20 MG TAB PO SCH (09:31)
[2018-02-05] MEDS: DANAZOL 100 MG CAP PO SCH ×4 (09:31→21:58)
[2018-02-05] MEDS: PANTOPRAZOLE SOD 40 MG TABEC PO SCH (17:17)
[2018-02-06 00:06] VITALS: BP 122/58
[2018-02-06 05:34] VITALS: BP 112/60
[2018-02-06 06:03] LABS: BASOPHILS % 0.2 % (0.0-1.0); HEMATOCRIT 24.1 % (34.2-44.1); HEMOGLOBIN 8.2 g/dL (12.0-16.0); LYMPHOCYTES # (AUTO) 0.8 (1.0-3.2); MEAN CORPUSCULAR HEMOGLOBIN 33.7 pg (28-32); MEAN CORPUSCULAR VOLUME 99.2 fL (81-99); MONOCYTES # (AUTO) 1.3 (0.2-0.8); MONOCYTES % 9.9 % (4.4-11.3); NEUTROPHILS # (AUTO) 9.9 (2.1-6.9); NEUTROPHILS % 75.9 % (38.7-80.0); PLATELET COUNT 246 x10e3/uL (140-360); RED BLOOD COUNT 2.43 x10e6/uL (3.6-5.1); RED CELL DISTRIBUTION WIDTH 23.8 % (11.7-14.4); RETICULOCYTE % 21.8 % (0.8-2.2)
[2018-02-06 06:16] LABS: ANION GAP 10.3 mmol/L (8-16); BLOOD UREA NITROGEN 12 mg/dL (7-26); BUN/CREATININE RATIO 19 (6-25); CALCIUM 8.2 mg/dL (8.4-10.2); CARBON DIOXIDE 24 mmol/L (22-29); CHLORIDE 103 mmol/L (98-107); CREATININE, SERUM 0.62 mg/dL (0.57-1.11); EST GLOMERULAR FILTRATION RATE > 60 ML/MIN (60-); GLUCOSE 103 mg/dL (74-118); POTASSIUM 4.3 mmol/L (3.5-5.1); SODIUM 133 mmol/L (136-145)
[2018-02-06 09:07] LABS: LYMPHOCYTES % (MANUAL) 9 % (19-48); METAMYELOCYTES % (MANUAL) 2 % (0-0); MONOCYTES % (MANUAL) 7 % (3.4-9.0); MYELOCYTES % (MANUAL) 3 % (0-0); NEUTROPHILS % (MANUAL) 79 % (40-74); NUCLEATED RED BLOOD CELLS 38
[2018-02-06 09:08] LABS: ANISOCYTOSIS SLIGHT; HYPOCHROMASIA SLIGHT; PLATELET ESTIMATE ADEQUATE
[2018-02-06 09:09] LABS: POIKILOCYTOSIS SLIGHT; RBC MORPHOLOGY COMMENT ABNORMAL; SMUDGE CELLS FEW
[2018-02-06 09:10] LABS: PLATELET MORPHOLOGY COMMENT NORMAL
[2018-02-06 09:35] VITALS: BP 112/60
[2018-02-06 09:36] VITALS: BP 108/75
[2018-02-06] MEDS: PREDNISONE 20 MG TAB PO SCH (09:37)
[2018-02-06] MEDS: DANAZOL 100 MG CAP PO SCH (09:37)
--- NOTE | 2018-02-06 09:46 | Consultation ---
DATE OF CONSULTATION: January 26, 2018 CONSULT TO: Dr. Tish Wellington HISTORY: Julieth Ulrich is a 22-year-old female who has been referred to me for evaluation of anemia. No history of hematochezia, melena, hematuria, hematemesis. The patient had an unusually long menstrual cycle. The patient has been seen by SALE PROFESSION[employer]ET[employer] physicians for sometime. The patient presented to the ER with history of tachycardia at 115, hemoglobin of 6.9. 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 SOCIAL HISTORY: Noncontributory. FAMILY HISTORY: Noncontributory. ALLERGIES: REPORTED NONE. MEDICATIONS AT HOME: None. REVIEW OF SYSTEMS: HEENT: Normal. CARDIAC: Normal. RESPIRATORY: Normal. GI: Normal. : History of dysfunctional uterine bleed. PHYSICAL EXAMINATION: GENERAL: A moderately-built female, anemic. HEENT: No palpable adenopathy. HEART: Within normal limits. LUNGS: Clear. BREASTS: Deferred at request. ABDOMEN: Soft. RECTAL: Deferred. VAGINAL: Deferred. CENTRAL NERVOUS SYSTEM: Essentially normal. EXTREMITIES: Essentially normal. LABS AND INVESTIGATIONS OF INTEREST: Show a hemoglobin of 6.9, hematocrit of 19.1, white count 17,570 with 17 nucleated red blood cells, 62 neutrophils, 4 bands, 25 lymphocytes, 6 monocytes, 3 eosinophils, platelets of 315,000. Retic response high at 9.9. Haptoglobin less than 10. Chemistry showed a sodium of 136, potassium 3.6, chloride is 105, CO2 22, BUN 12, creatinine 0.7, calcium 9.9. Iron high at 190, iron binding capacity 350, saturation high at 54, ferritin high at 250. Total bilirubin 4.5, SGOT 42, SGPT 21, alkaline phosphatase 82. Total protein , albumin 4.6, globulin 3.1. Chest x-ray was reported bilateral peribronchial cuffing and opacity. IMPRESSION: 1. Zachariah-positive hemolytic anemia. 2. Leukocytosis. 3. Dysfunctional uterine bleed. PLAN, COMMENTS, AND SUGGESTIONS: Because of the questionable findings on the chest x-ray, a CAT scan of the chest was done to make sure she does not have mycoplasma pneumoniae. The patient was also put on Zithromax until we got the results. Legionella titers were done. Cold agglutinins were done. The patient also had a CAT scan of the chest and abdomen and pelvis to make sure she does not have any lymphoma. These, however, were reported essentially negative. The patient was put on IVIG and Solu-Medrol fairly high doses. The patient continued to hemolyze. The patient's hemoglobin became stable once the patient was started on IVIG. The hemoglobin had dropped down to 6.8 on January 30, however, the patient still continued to hemolyze. The hemoglobin today is 8.2. As also part of workup, the patient had lupus panel. ENZO is reported positive. SS-A/Ro antibodies are reported very high at 4.2. Smooth muscle antibodies are reported high at 29. Anti-CAREER SERVICES REPRESENTATIVE are reported high at 1. Thyroid peroxidase antibodies are reported at 76, anti-parietal antibodies are reported at 28.4. Complement C4 is reported low at 12. Once I got the results on February 01, I discontinued the IVIG. The patient has been started on prednisone 1 mg/kg body weight. The patient is stable enough at this time to be discharged on 80 mg of prednisone. During this hospitalization, the patient also had vaginal bleed. Dr. Blake, a riveter hand has seen her. I have communicated with Dr. Wellington to obtain a rheumatology consultation as outpatient. I will confine myself to hematology only. Thank you very much for allowing me to participate in the management of this patient. I have suggested the patient to call my office to make an appointment in 1 week. Job#: [id number] cc:TISH WELLINGTON MD
[2018-02-06] MEDS ORDERED: PREDNISONE20 MG PO (13:23)
[2018-02-06] MEDS ORDERED: PANTOPRAZOLE SO40 MG PO (13:24)
--- NOTE | 2018-02-06 15:15 | Discharge Summary ---
CONSULTANTS 1. Dr. Vanita Clifton. 2. Dr. Gavin Blake. FINAL DIAGNOSES 1. Zachariah positive hemolytic anemia, status post multiple blood transfusions and also IVIg infusion along with Solu-Medrol treatment. The patient's hemoglobin/hematocrit went up to 8.2 and 24.1, on admission was 6.9 and 19.1 respectively. 2. ENZO positive with SSA/Ro antibodies reportedly high at 4.2. The smooth muscle antibody is reported high at 29. Anti-TAKER OFF DRYING KILN is reported high at 1. Thyroid peroxidase antibody is reported at 76, and antiparietal antibodies are reported at 28.4 with complement C4 reported low at 12. 3. Dysfunctional uterine bleed. Saw Dr. Gavin Blake and now is on a control pill. SUMMARY: Patient is a 22-year-old female who came in with severe symptomatic anemia with a hemoglobin of 6.9 on admission. Patient also had recent gross vaginal bleed as well. Thought that she may have had the anemia secondary to vaginal bleed, but on further workup she had a normal iron panel and along with that she had picture of a high retic count along with lab work with results showing that she had basically hemolytic anemia. Patient then subsequently had further workup showing that she has Zachariah test positive for hemolytic anemia. The patient was placed on IVIg and IV steroids. She did much improve on her hemoglobin but very slowly. Her hemoglobin now is 8.2. Patient also had elevated WBC when she was admitted. WBC was 17.7. She has neutrophil of 10.9. Her retic count was 9.9. Patient also had multiple other workup, subsequently found as follows. Her serology antinuclear antibody ENZO was positively high. Titer was positively high with the SSA/Ro antibody 4.2. SSB/La antibody was 0.4. The Gillespie antibody was 29. The anti-nRNP and anti-IgG antibody was 1. The scleroderma antibody was negative. The anti-double stranded DNA was 3. The antimitochondrial antibody was 15.4. Striated muscle antibody was negative. The thyroid peroxidase antibody was at 76. The antiparietal cells antibody was 28.4 and the complement C4 was 12, which is low. The normal level with complement was 14 to 44. The patient is progressively doing better. She is stable. The urine Legionella antigen was negative. She was placed on high-dose steroids. Currently the patient is stable. Her hemoglobin went up, and her retic count has improved. She is now going home. Recommendation for the patient to continue with prednisone 80 mg once a day. She does have an appointment with Dr. Vanita Clifton for followup visit. The patient is to follow up with her all terrain vehicle racer of choice. I believe it is Dr. Sondra Coreas. Her father has made an appointment. Patient is otherwise stable, discharged home, and she will not return to school on this semester and note will be given for the patient. Job#: [id number]
== END 2018-02-06 14:48 | disposition home or self-care (01) | DRG 812 ==
LOC: ER 12:35 → ERHOLD 15:47 → IMCU 19:01 → OBSVTOIN 01-25 10:19 → MED/SURG3 01-25 14:22
PROVIDERS: ADMIT Internal Medicine; ATTEND Internal Medicine
PROC: 30233N1 Transfusion of Nonautologous Red Blood Cells into Peripheral Vein, Percutaneous Approach (ICD-10-PCS; principal; 2018-01-24)
PROC: 30233S1 Transfusion of Nonautologous Globulin into Peripheral Vein, Percutaneous Approach (ICD-10-PCS; 2018-01-28)
DX: D58.9 Hereditary hemolytic anemia, unspecified (principal); R76.0 Raised antibody titer; N93.8 Other specified abnormal uterine and vaginal bleeding; R00.0 Tachycardia, unspecified; D72.829 Elevated white blood cell count, unspecified; R79.89 Other specified abnormal findings of blood chemistry; Z28.21 Immunization not carried out because of patient refusal
CPT/HCPCS: 36415; 71046; 71260; 74177; 80048; 80053; 80076; 81001; 81025; 82232; 82248; 82607; 82728; 82746; 83010; 83021; 83516; 83540; 83605; 83615; 84439; 84443; 84466; 85025; 85045; 86039; 86157; 86160; 86200; 86225; 86235; 86255; 86256; 86376; 86431; 86850; 86870; 86880; 86900; 86905; 86922; 87040; 87086; 87449; 88184; 93005; 96361; 99001; 99284; G0378; J2001; J2270; J2405; J2920; J7030; J7050; J7512; P9016; Q9967